=== PATIENT | female | born 1930 | race Caucasian/White ===

== ENCOUNTER 2016-04-03 08:01 | Outpatient (CLI) | payer MEDICARE, MEDICAID ==
[~2016-04-03] VITALS: Ht 167.6 cm; Wt 83.2 kg
--- NOTE | ~2016-04-03 | HEMODYNAMI ---
PATIENT:IRVING ANTHONY MEDICAL RECORD: [id number] : 30 LOCATION:[facility] ADMISSION DATE: 04/03/16 Generatedon:04/03/201611:38 Patient name: IRVING ANTHONY Patient #: [id number] SSN: DO B: 1930 Date of study: 04/03/2016 Page: Of Hemodynamic Procedure Report Patient Data Patient Demographics Procedure consent was obtained First Name: IRVING Gender: Female Last Name: GABRIELLE : 1930 Patient #: [id number] Age: 85 year(s) Race: Additional ID: [id number] Contact details Address: [address] [place] [address] State: [place] City: [facility] Zip code: [address] Past Medical History Allergies Allergen Reaction Date Comments Reported Other allergy 04/03/2016 demerol Penicillins 04/03/2016 Aspirin 04/03/2016 Admission Admission Data Admission Date: 04/03/2016 Admission Time: 8:01 Lab Results Lab Result Date: 04/03/2016 Lab Result Time: 0:00 Biochemistry Name Units Result Min Max Creatinine mg/dl 0.9 --(-*--)-- 0.6 1.3 CBC Name Units Result Min Max Hemoglobin g/dl 12.4 *-(----)-- 13.5 17.5 Procedure Procedure Types Cath Procedure Diagnostic Procedure LHC LH w/Coronaries FFR/IVUS Intra-Coronary IVUS Initial PCI Procedure Coronary Stent Initial Miscellaneous Procedures Moderate Sedation up to 15 minutes Procedure Description Procedure Date Procedure Date: 04/03/2016 Procedure Start Time: 11:05 Procedure End Time: 11:24 Procedure Staff Name Function Linnea Sylvester RT Monitor Kemi Chávez RT Scrub Richy Peterson RT Teachers Aide Cristhian Moreira RN Nurse Hayes Ji MD Performing Physician Procedure Data Cath Procedure Fluoroscopy Diagnostic fluoroscopy Total fluoroscopy Time: 3.1 time: 3.1 min min Diagnostic fluoroscopy Total fluoroscopy dose: 677 dose: 677 mGy mGy Contrast Material Contrast Material Type Amount (ml) Isovue 300 71 Entry Location Entry Primary Successful Side Size Upsize Upsize Entry Closure Succes sful Closure Location (Fr) 1 (Fr) 2 (Fr) Remarks Device Remarks Femoral Right 5 Fr 6 Fr Exoseal artery Short Estimated blood loss: 10 ml Diagnostic catheters Device Type Used For End Catheter Placement Cordis 5Fr Pigtail LV Angiography Catheter (MP) Cordis 5Fr JL 4.0 Left Coronary Catheter (MP) Angiography Cordis 5Fr 3DRC Catheter Right Coronary (MP) Angiography Procedure Complications No complications Procedure Medications Medication Administration Route Dosage Oxygen NC 2 l/min Lidocaine 2% added to field 20 Heparin Flush Bag added to field 2 bags (1000units/500ml NS) 0.9% NaCl I.V. 100 ml/hr Versed I.V. 1 mg Fentanyl I.V. 50 mcg Heparin Bolus I.V. 4000 units Integrilin (Bolus I.V. 7.3 ml 2mg/ml) Plavix P.O. 600 mg Hemodynamics Rest HGB: 12.4 (g/dl) Heart Rate: 47 (bpm) Snapshots Pre Cath Intra NCS Post Cath Vital Signs Time Heart Resp SPO2 etCO2 [id number] NIBP (mmHg) Rhythm Pain Sedation Rate (ipm) (%) (mmHg) (mmHg) Status Level (bpm) 11:00:32 57 178 96 0 0 Measuring NSR 0 (11) 10(A) , No pain 11:01:01 57 21 96 0 0 167/79(135) NSR 0 (11) 10(A) , No pain 11:06:20 52 16 96 0 0 173/82(127) NSR 0 (11) 10(A) , No pain 11:10:50 52 16 94 0 0 162/76(130) NSR 0 (11) 9(A) , No pain 11:16:12 54 15 95 0 0 153/75(123) NSR 0 (11) 9(A) , No pain 11:20:32 52 16 94 0 0 134/68(112) NSR 0 (11) 10(A) , No pain Medications Time Medication Route Dose Verified Delivered Reason Notes Effectiveness by by 10:59:14 Oxygen NC 2 Hayes Morrow used for l/min Margy Moreira senior revenue accountant 11:01:52 Lidocaine 2% added 20ml Hayes Koo for local to vial Margy Ji MD anesthetic field 11:01:58 Heparin Flush added 2 Hayes Koo used for Bag to bags Margy Ji MD procedure (1000units/500ml field NS) 11:02:06 0.9% NaCl I.V. 100 Hayes Morrow Per ml/hr Margy Moreira RN physician 11:08:34 Versed I.V. 1 mg Hayes Morrow for sedation Margy Moreira RN 11:08:49 Fentanyl I.V. 50 Hayes Morrow for sedation mcg Margy Moreira RN 11:13:20 Heparin Bolus I.V. 4000 Hayes Morrow verified units Margy Moreira RN with dr ji 11:16:31 Integrilin I.V. 7.3 Hayes Morrow for wasted 2. 7 (Bolus 2mg/ml) ml Margy Moreira RN antiplatelet ml therapy integrilin from vial. 11:20:53 Plavix P.O. 600 Hayes Morrow for mg Margy Moreira RN antiplatelet therapy Procedure Log Time Note 10:49:07 Richy Peterson RT(R) sent for patient. Start room use. 10:49:09 Time tracking: Regular hours 10:49:12 Plan of Care:Hemodynamics will remain stable., Cardiac rhythm will remain stable., Comfort level will be maintained., Respiratory function will remain adequate., Patient/ family verbilizes understanding of procedure., Procedure tolerated without complication., Recovers from procedure without complications.. 10:52:29 Patient received from Pre/Post Procedure Room to [facility] 1 Alert and oriented. Tansferred to table in Supine position. 10:52:31 Warm blankets applied, and beverley hugger turned on for patient comfort. 10:52:32 Correct patient and procedure confirmed by team. 10:52:37 Signed procedure consent form obtained from patient. 10:52:38 ECG and BP/O2 sat monitors applied to patient. 10:52:39 Full Disclosure recording started 10:58:43 Vital chart was started 10:59:12 Baseline sample Acquired. 10:59:14 Oxygen 2 l/min NC was given by Cristhian Moreira RN; used for procedure; 10:59:44 Rhythm: sinus bradycardia 11:00:00 H&P Date Dictated: 03/26/2016 Within 30 days and on chart., H&P Addendum completed by physician on day of procedure. (MUST COMPLETE FOR ALL OUTPATIENTS). 11:00:01 Pre-op teaching completed and patient verbalized understanding. 11:00:01 Pre-procedure instructions explained to patient. 11:00:03 Family in waiting room. 11:00:07 Patient NPO since Midnight. 11:00:21 Patient allergic to Other allergydemerol 11:00:28 Patient allergic to Penicillins 11:00:33 Patient allergic to Aspirin 11:00:36 Is the patient allergic to Iodine/contrast media? No. 11:00:39 Is patient on blood thinner?No 11:00:57 ACC The patient was administered the following blood thiners within the last 24 hours: None 11:00:59 Patient diabetic? No. 11:01:02 Previous problem with sedation/anesthesia? No ? 11:01:04 Snore? No 11:01:05 Sleep apnea? No 11:01:06 Deviated septum? No 11:01:07 Opens mouth fully? Yes 11:01:08 Sticks out tongue? Yes 11:01:10 Airway obstruction? No ? 11:01:29 Dentures? Yes Out 11:01:32 Pre procedure: right dorsailis pedis pulse 2+ Normal; easily identifiable; not easily obliterated 11:01:34 Modified Pancho's test Ulnar > 7 seconds. 11:01:36 Patient pain scale 0/10 ?. 11:01:40 IV patent on arrival in left hand with 0.9% NaCl at [facility]. 11:01:52 Lidocaine 2% 20ml vial added to field was given by Hayes Ji MD; for local anesthetic; 11::58 Heparin Flush Bag (1000units/500ml NS) 2 bags added to field was given by Hayes Ji MD; used for procedure; 11::59 Lab Result : Hemoglobin 12.4 g/dl 11::59 Lab Result : Creatinine 0.9 mg/dl 11:02:03 Lab results completed and on chart. 11:02:06 Right groin area was prepped with chlora-prep and draped in sterile fashion 11:02:06 0.9% NaCl 100 ml/hr I.V. was given by Cristhian Moreira RN; Per physician; 11:02:07 Alarms reviewed by R. N. 11:02:08 Sharps counted by scrub and verified by R.N. 11:02:11 Use device set Femoral Dx 11:02:12 Acist Syringe opened to sterile field. 11:02:13 Medline Cath Pack opened to sterile field. 11:02:13 Bag Decanter opened to sterile field. 11:02:14 St [place] 260cm J .035 wire opened to sterile field. 11:02:14 Terumo 5Fr [place] Sheath opened to sterile field. 11:02:15 Acist Hand Control opened to sterile field. 11:02:16 Acist Manifold opened to sterile field. 11:02:17 Tegaderm 4 x 4 opened to sterile field. 11:02:17 Diagnostic Infinity 5Fr Multipack catheter opened to sterile field. 11:04:09 Final Timeout: patient, procedure, and site verified with staff and physician. All members of the team are in agreement. 11:04:11 Right groin site verified by team. 11:04:13 Physical assessment completed. ASA score P 2 - A patient with mild systemic disease as per Hayes Ji MD. 11:04:16 Sedation plan: IV Moderate Sedation Versed, Fentanyl 11:04:21 Procedure started. 11:05:03 Local anesthetic to right femoral artery with Lidocaine 2% by Hayes Ji MD.INITIAL ACCESS ONLY 11:05:58 A 5 Fr sheath was inserted into the Right Femoral artery 11:07:47 A Cordis 5Fr Pigtail Catheter (MP) was advanced over the wire and used for LV Angiography. 11:08:09 Zero performed for pressure channel P1 11:08:31 LV gram done using IVY 11:08:34 Versed 1 mg I.V. was given by Cristhian Moreira RN; for sedation; 11:08:36 EF : 30 % 11:08:37 LV hemodynamics recorded. 11:08:39 Injector settings: Ml/sec: 10, Volume: 20, 11:08:42 Catheter removed. 11:08:49 Fentanyl 50 mcg I.V. was given by Cristhian Moreira RN; for sedation; 11:08:52 A Cordis 5Fr JL 4.0 Catheter (MP) was advanced over the wire and used for Left Coronary Angiography. 11:10:45 Catheter removed. 11:10:58 A Cordis 5Fr 3DRC Catheter (MP) was advanced over the wire and used for Right Coronary Angiography. 11:11:32 Zamudio Whisper J 300cm 0.014 guide wire opened to sterile field. 11:11:32 [employer] BasixCompak Inflation Kit opened to sterile field. 11:11:33 [place] IVUS Catheter opened to sterile field. 11:11:33 Medtronic Launcher 6Fr HS II guide catheter opened to sterile field. 11:11:34 Terumo 6Fr [place] Sheath opened to sterile field. 11:12:51 Sheath upsized to a 6 Fr Short. 11:12:58 6 Fr HS II guide catheter was inserted over the wire 11:13:06 Whisper wire advanced. 11:13:20 Heparin Bolus 4000 units I.V. was given by Cristhian Moreira RN; ; verified with dr ji 11:13:52 IVUS catheter advanced over wire. 11:14:31 IVUS pass to RCA lesion performed. 11:14:33 IVUS catheter removed over wire. 11:16:25 Inflation Number: 1 A Medtronic Resolute 3.0 X 38 stent was prepped and advanced across the Mid RCA. The stent was deployed at 13 AMANDA for 0:10 (min:sec). 11:16:31 Integrilin (Bolus 2mg/ml) 7.3 ml I.V. was given by Cristhian Moreira RN; for antiplatelet therapy; wasted 2.7 ml integrilin from vial. 11:16:40 Wire removed. 11:16:40 Stent catheter was removed intact over wire. 11:16:41 Guide catheter removed. 11:17:04 Procedure ended.(Physican Out) 11:17:19 Sheath removed intact; hemostasis achieved with Exoseal to the Right Femoral artery. 11:17:41 Fluoroscopy time 03.10 minutes. 11:17:45 Fluoroscopy dose: 677 mGy 11:17:45 Flurop Dose total: 677 11:18:15 Contrast amount:Isovue 300 71ml. 11:18:53 Sharps counted by scrub and verified by R.N. 11:18:57 Insertion/operative site no bleeding no hematoma. 11:19:01 Post-op/insertion site Right Femoral artery dressed using a 4 x 4 and Tegaderm. 11:19:04 Post right femoral artery:stable, clean and dry 11:19:05 Post Procedure Pulses reassessed and unchanged 11:19:08 Post-procedure physical assessment completed. ASA score P 2 - A patient with mild systemic disease as per Hayes Ji MD. 11:19:10 Post procedure rhythm: unchanged. 11:19:16 Estimated blood loss: 10 ml 11:19:18 Post procedure instruction explained to patient.Patient verbalizes understanding. 11:19:19 Patient needs reinforcement of post procedure teaching. 11:19:27 Procedure type changed to Cath procedure, Diagnostic procedure, LHC, LHC w/Coronaries, FFR/IVUS, Intra-Coronary IVUS Initial, PCI procedure, Coronary Stent Initial, Miscellaneous Procedures, Moderate Sedation up to 15 minutes 11:19:57 Procedure and supply charges have been captured, reviewed, submitted and are correct. 11:20:53 Plavix 600 mg P.O. was given by Cristhian Moreira RN; for antiplatelet therapy; 11:21:45 Cordis 6Fr Exoseal opened to sterile field. 11:23:23 Procedure Complication : No complications 11:23:25 See physician's report for complete and final results. 11:24:40 Vital chart was stopped 11:24:44 Report given to Pre/Post Procedure Room. 11:24:48 Patient transfered to Pre/Post Procedure Room with Stretcher. 11:24:50 Full Disclosure recording stopped 11:24:50 Procedure ended. 11:24:57 End room use (Document Last) Intervention Summary Intervention Notes Time ActionType Lesion and Equipment Action# Pressure Duration Attributes Used 11:16:25 Place stent Mid RCA Medtronic 1 13 00:10 Resolute 3.0 X 38 stent Device Usage Item Name Manufacture Quantity Catalog Hospital Part Current Minimal Lot# / Number Charge Number Stock Stock Serial# Code Acist Acist 1 42556 [id number] 594894 108546 20 Syringe Medical Systems Inc Bag Microtek 1 2001S [id number] 16496 589235 5 Decbeatlab [employer] Inc[employer] Medline Cardinal 1 [id number] 735570 93609 900015 5 Cath Pack Health Terumo 5Fr Terumo 1 [id number] 332955 191726 164495 [address] [place] 1 258723 388678 530250 620351 30 260cm J .035 wire Acist Hand Acist 1 67232 273753 491579 052160 5 Control Medical Systems Inc Acist Acist 1 76564 836779 514340 555068 5 Manifold Medical Systems Inc Diagnostic Cardinal 1 [id number] 660928 67472 729812 30 Infinity Health 5Fr Multipack catheter Tegaderm 4 3M 1 1626W 043050 519100 602655 5 x 4 Cordis 5Fr Cardinal 1 461215 5 Pigtail Health Catheter (MP) Cordis 5Fr Cardinal 1 401491 5 JL 4.0 Health Catheter (MP) Cordis 5Fr Cardinal 1 547643 5 3DRC Health Catheter (MP) Merit Merit 1 [id number] 605809 373127 003663 15 NuOrtho Surgical Medical Inflation Kit Zamudio Zamudio 1 [id number] 913364 875553 514914 5 Whisper J Vascular 300cm 0.014 guide wire Medtronic Medtronic 1 [id number] 819944 51625 415709 1 Launcher 6Fr HS II guide catheter [place] 1 [id number] 203970 659526 444892 8 [place] IVUS Catheter Terumo 6Fr Terumo 1 [id number] 580140 800802 107744 40 [place] Sheath Medtronic Medtronic 1 [id number] 337851 533852 0 [id number] Resolute 3.0 X 38 stent Cordis 6Fr Cardinal 1 [id number] 346832 176214 070524 10 [facility] Health Signature Audit [place] Stage Time Signature Unsigned Intra-Procedure 04/03/2016 Linnea Yarbrough Counts 11:25:08 AM Counts RT(R) RT(R) 04/03/2016 11:37:02 AM Intra-Procedure 04/03/2016 Linnea 11:38:35 AM Counts RT(R) Signatures Monitor : Linnea Signature : Counts RT Date : Time : [place] [id number] [place] [address]
[2016-04-03] MEDS ORDERED: PROVENTIL HFA6.7 GM INH (08:23)
[2016-04-03] MEDS ORDERED: SYNTHROID75 MCG PO (08:23)
[2016-04-03] MEDS ORDERED: HYDROCHLOROTHIA25 MG GT (08:25)
[2016-04-03] MEDS ORDERED: AGGRENOX 200/251 CAP PO (08:26)
[2016-04-03] MEDS ORDERED: LIPITOR10 MG PO (08:26)
[2016-04-03] MEDS ORDERED: ALENDRONATE SOD10 MG PO (08:26)
[2016-04-03] MEDS ORDERED: LEXAPRO10 MG PO (08:27)
[2016-04-03] MEDS ORDERED: FOLTX TABLET1 EACH PO (08:27)
[2016-04-03] MEDS ORDERED: ZETIA10 MG PO (08:34)
[2016-04-03] MEDS ORDERED: VESICARE5 MG PO (08:34)
[2016-04-03] MEDS ORDERED: VIACTIV SOFT C1 EACH PO (08:35)
[2016-04-03] MEDS ORDERED: SPIRIVA RESPIMAT4 G1 INH (08:36)
[2016-04-03 08:49] VITALS: BP 146/74; Ht 167.6 cm; Wt 83.2 kg
[2016-04-03 08:53] LABS: BASOPHILS 0 % (0.0-2.0); EOSINOPHILS 0 % (0-7); HEMATOCRIT 39.6 % (36.0-48.0); HEMOGLOBIN 12.4 g/dL (12-16); IMMATURE GRANULOCYTES 0.1 % (0-5); LYMPHOCYTES 12.5 % (15-50); MCH 27.6 pg (26.0-34.0); MCHC 31.3 g/dL (31.0-37.0); MCV 88.2 fL (80.0-100.0); MEAN PLATELET VOLUME 10.3 fL (7.4-10.4); MONOCYTES 7.3 % (2-11); NEUTROPHILS 80.1 % (40-80); PLATELET COUNT 259 10x3/uL (130-400); RBC 4.49 10x6/uL (4.00-5.40); RDW 13.5 % (11.5-14.5); WBC 8.1 10x3/uL (4.8-10.8)
[2016-04-03 08:54] LABS: ANION GAP 10.1 mmol/L (8-16); CALCIUM 9.6 mg/dL (8.5-10.1); CARBON DIOXIDE 31.9 mmol/L (21.0-32.0); CREATININE - SERUM 0.9 mg/dL (0.6-1.3)
[2016-04-03] MEDS ORDERED: PLAVIX75 MG PO (11:47)
--- NOTE | 2016-04-03 12:19 | NUR ---
1145-RIGHT GROIN- CDI, SOFT TO TOUCH, NO HEMATOMA NOTED 1215- NO CHANGES TO RIGHT GROIN, SENIOR PLANNING ANALYST IN USE
--- NOTE | 2016-04-10 08:46 | OP ---
PATIENT NAME: IRVING ANTHONY MEDICAL RECORD: [id number] :30 LOCATION:D.CAT ADMISSION DATE: SURGEON: ELVIA CHRISTENSEN MD DATE OF OPERATION: 04/03/2016 PROCEDURES: 1. PTCA stent RCA. 2. Intravascular ultrasound RCA. 3. Left heart catheterization. 4. Selective coronary angiography. 5. Left ventriculogram. INDICATION: Angina and coronary artery disease. PROCEDURE IN DETAIL: After informed consent was obtained and after detailed explanation of risks, benefits as well as alternative therapies, the patient elected to proceed with angiogram and angioplasty. The right femoral area was prepped and draped in normal sterile fashion. The right femoral artery was cannulated via modified Seldinger technique with placement of 6-[place] sheath. All catheters exchanged through this sheath. FINDINGS: Left ventriculogram was performed in standard 30-degree IVY view, reveals global hypokinesis throughout all segments. Overall ejection fraction in the 30% to 35% range. SELECTIVE CORONARY ANGIOGRAPHY: 1. Left main is with no significant angiographic disease. 2. Left anterior descending has moderate irregularities, but no flow-limiting stenosis. 3. The left circumflex shows moderate irregularities, but no flow-limiting stenosis. 4. Right coronary has greater than 80% stenosis throughout the entire proximal mid portion of the vessel confirmed by intravascular ultrasound. PTCA STENT OF THE RIGHT CORONARY: The stent used 3.0 x 38 mm Resolute. Result was 0% residual stenosis. OVERALL IMPRESSION: Successful percutaneous transluminal coronary angioplasty stent of the right coronary artery going from greater than 80% initial stenosis to 0% residual. TRANSINT:[id number] Voice Confirmation ID: [id number] DOCUMENT ID: [id number] ELVIA CHRISTENSEN MD at 0846 CC: [id number] DICTATION DATE: 04/03/16 1121 MAT PUNCHER: 04/03/16 1839 DEP CLI 04/03/16 [place] [id number] [place] [id number]
== END 2016-04-03 15:45 | disposition home or self-care (01) ==
LOC: D.CATH 08:01
PROVIDERS: Internal Medicine Interventional Cardiology
DX: I25.119 Atherosclerotic heart disease of native coronary artery with unspecified angina pectoris (principal)
CPT/HCPCS: 92978; 93458; C9600